=== PATIENT | male | born 1990 | race Caucasian/White ===

== ENCOUNTER 2018-12-06 13:58 | Inpatient (IN) | payer BC ==
[~2018-12-06] VITALS: Ht 182.9 cm; Wt 106.4 kg
--- NOTE | 2018-12-06 14:10 | NUR ---
PT BIB [place] [facility] FROM [facility] FOR ABNORMAL LABS AND CHEST PAIN. TROPONIN 2.23, UP FROM 1.31 EARLIER IN TODAY. PT WENT IN FOR CHEST PAIN, HAS HAD UPPER RESPIRATORY/FLU SYMPTOMS RECENTLY. PT WAS MEDICATED WITH TORADOL, 324MG ASA, AND 1L NS AT [facility]. 12-LEAD UNREMARKABLE. PT DENIES ANY MED HX. ARRIVES TO ED A&OX4. ERP AT BS IMMEDIATELY. EKG DONE.
[2018-12-06] MEDS ORDERED: IBUPROFEN 600 MG TABLET ONE (14:14)
[2018-12-06] MEDS ORDERED: SODIUM CHLORIDE FLUSH 10ML SYR IVF ONE (14:30)
[2018-12-06] MEDS ORDERED: IBUPROFEN 200 MG TABLET PO ONE (14:30)
[2018-12-06 14:48] LABS: RAPID INFLUENZA A Negative (Negative); RAPID INFLUENZA B Negative (Negative)
[2018-12-06 14:51] LABS: BASOPHILS # (AUTO) 0.02 x10^3/uL (0-0.1); BASOPHILS % (AUTO) 0 % (0-1); EOSINOPHILS # (AUTO) 0.18 x10^3/uL (0-0.4); EOSINOPHILS % (AUTO) 3 % (1-7); LYMPHOCYTES # (AUTO) 1.16 x10^3/uL (1-3.4); LYMPHOCYTES % (AUTO) 19 % (22-44); MD NO; MEAN CORPUSCULAR HEMOGLOBIN 29.5 pg (27.5-34.5); MEAN CORPUSCULAR HGB CONC 33.5 g/dL (33.2-36.2); MEAN PLATELET VOLUME 7.3 fL (7.4-10.4); MONOCYTES # (AUTO) 0.58 x10^3/uL (0.2-0.8); MONOCYTES % (AUTO) 10 % (2-9); NEUTROPHILS # (AUTO) 4.13 x10^3/uL (1.8-6.8); NEUTROPHILS % (AUTO) 68 % (42-75); PLATELET COUNT 196 x10^3/uL (130-400); RED BLOOD COUNT 5.38 x10^6/uL (4.38-5.82)
[2018-12-06 14:57] LABS: INTERNATIONAL NORMALIZED RATIO 1.07 (0.93-1.1); PROTHROMBIN TIME 11.2 Seconds (9.6-11.5)
[2018-12-06 14:58] LABS: ALBUMIN 3.6 g/dL (3.4-5.0); ANION GAP 5 mmol/L (5-15); CALCIUM 8.7 mg/dL (8.5-10.1); CHLORIDE 108 mmol/L (98-107)
[2018-12-06 15:04] LABS: ALANINE AMINOTRANSFERASE 45 U/L (12-78); ALKALINE PHOSPHATASE 45 U/L (45-117); BILIRUBIN,TOTAL 0.6 mg/dL (0.2-1.0); CREATININE 0.98 mg/dL (0.7-1.3); TOTAL PROTEIN 7.1 g/dL (6.4-8.2)
--- NOTE | 2018-12-06 15:10 | NUR ---
LAB CALLED WITH CRITICAL RESULT OF TROP 6.94. ERP NOTIFIED. REPORTED TO NOEMI SANCHEZ NURSE.
[2018-12-06] MEDS ORDERED: ONDANSETRON 2MG/ML, 2ML IVPush PRN (16:00)
[2018-12-06] MEDS ORDERED: morphine SULFATE 10 MG/ML, 1ML IVPush PRN (16:00)
[2018-12-06] MEDS ORDERED: ACETAMINOPHEN 325 MG TABLET PO PRN (16:00)
[2018-12-06] MEDS ORDERED: ENOXAPARIN 40 MG/0.4 ML SQ SCH (16:00)
[2018-12-06 16:18] LABS: HCT (SEDRATE) 47.3 % (39.2-51.8)
[2018-12-06] MEDS: KETOROLAC 30 MG/1 ML IVPush SCH ×2 (16:52→22:37)
[2018-12-06 20:00] VITALS: BP 124/84
[2018-12-07 02:00] VITALS: BP 118/74
[2018-12-07 03:34] LABS: BASOPHILS # (AUTO) 0.04 x10^3/uL (0-0.1); BASOPHILS % (AUTO) 1 % (0-1); EOSINOPHILS # (AUTO) 0.38 x10^3/uL (0-0.4); EOSINOPHILS % (AUTO) 5 % (1-7); LYMPHOCYTES # (AUTO) 1.71 x10^3/uL (1-3.4); LYMPHOCYTES % (AUTO) 25 % (22-44); MD NO; MEAN CORPUSCULAR HEMOGLOBIN 29.8 pg (27.5-34.5); MEAN CORPUSCULAR HGB CONC 33.8 g/dL (33.2-36.2); MEAN CORPUSCULAR VOLUME 88.1 fL (81-97); MEAN PLATELET VOLUME 7.5 fL (7.4-10.4); MONOCYTES # (AUTO) 0.71 x10^3/uL (0.2-0.8); MONOCYTES % (AUTO) 10 % (2-9); NEUTROPHILS # (AUTO) 4.12 x10^3/uL (1.8-6.8); NEUTROPHILS % (AUTO) 59 % (42-75); PLATELET COUNT 209 x10^3/uL (130-400); RED BLOOD COUNT 4.93 x10^6/uL (4.38-5.82); RED CELL DISTRIBUTION WIDTH 12.6 % (9.4-14.8)
[2018-12-07] MEDS: KETOROLAC 30 MG/1 ML IVPush SCH (03:41)
[2018-12-07 03:47] LABS: ALANINE AMINOTRANSFERASE 42 U/L (12-78); ALBUMIN 3.1 g/dL (3.4-5.0); ANION GAP 5 mmol/L (5-15); CALCIUM 8.3 mg/dL (8.5-10.1); CHLORIDE 109 mmol/L (98-107)
[2018-12-07 03:49] LABS: ALKALINE PHOSPHATASE 41 U/L (45-117); BILIRUBIN,TOTAL 0.4 mg/dL (0.2-1.0); TOTAL PROTEIN 6.3 g/dL (6.4-8.2)
[2018-12-07] MEDS ORDERED: INDOMETHACIN ER 75 MG CAPSULE PO SCH (09:00)
[2018-12-07 09:01] VITALS: BP 120/87
[2018-12-07 10:03] LABS: HCT (SEDRATE) 46.9 % (39.2-51.8)
[2018-12-07] MEDS ORDERED: INDO75CA3 PO (11:14)
== END 2018-12-07 12:35 | disposition home or self-care (01) | DRG 316 ==
LOC: ED 14:34 → EDIP 15:03 → 5SO 15:44
PROVIDERS: ADMIT Hospitalist; ATTEND Internal Medicine
DX: I30.9 Acute pericarditis, unspecified (principal); B34.9 Viral infection, unspecified; J45.20 Mild intermittent asthma, uncomplicated; Z87.891 Personal history of nicotine dependence; R07.9 Chest pain, unspecified
CPT/HCPCS: 36415; 80053; 83605; 83735; 84145; 84484; 85025; 85610; 85651; 86140; 87040; 87400; 93005; 99285; G0378; J1650; J1885

== ENCOUNTER 2019-01-06 14:08 | Outpatient (CLI) | payer BC ==
[~2019-01-06 14:08] MED LIST: INDO75CA3 PO
== END 2019-01-06 23:59 | disposition home or self-care (01) ==
LOC: CFH 14:08
PROVIDERS: ATTEND Internal Medicine Cardiovascular Disease
DX: B33.23 Viral pericarditis (principal); F12.10 Cannabis abuse, uncomplicated
CPT/HCPCS: 93306